=== PATIENT | male | born 1995 | race Caucasian/White ===

== ENCOUNTER → 2019-05-14 | Outpatient (CLI) | payer OTHER ==
--- NOTE | 2019-05-15 11:51 | RADIOLOGY REPORT (SQ) ---
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 TECHNIQUE: Noncontrast scanning through the paranasal sinuses using bone algorithm. Reconstructed MPR images reviewed. All images stored on PACS. All CT scanners at this facility use dose modulation, iterative reconstruction, and/or weight based d osing when appropriate to reduce radiation dose to as low as reasonably achievable (ALARA). [facility]: Dose Right [facility]: CareDose [facility]: Dose Right [facility]: Teradose 4D [facility]: [employer] RADIATION DOSE: 47.5mGy. LIMITATIONS: None. FINDINGS: Right sinuses and drainage pathways: Post-surgical changes: Patient is post resection of the right anterior ethmoid septa. There is still some bony with narrowing of the right frontal sinus outlet on sagittal image 11/272 and axial images 64 through 73. Surgical widening of the right maxillary sinus outlet on coronal image 118/390. Frontal sinus: Circumferential mucous membrane thickening in the right frontal sinus without air-flu id level. Frontoethmoidal Recess: Narrowing of the right frontal sinus outlet on sagittal image 11/272 and axi al images 64-73. Frontal sinus outlet is seen on coronal image 117/390 Anterior Ethmoid Sinuses: Post resection of the right anterior ethmoid septa Posterior Ethmoid Sinuses: Normal. Sphenoid Sinus: Normal. Sphenoethmoidal Recess: Narrowed on axial images 81 through 88 Maxillary Sinus: Circumferential mucous membrane thickening Ostiomeatal Complex: Surgical widening of the right maxillary sinus outlet on coronal image 118/390 Right Olfactory Fossa: Normal. Left Olfactory Fossa: Normal. Middle Turbinate Daina Bullosa: No Paradoxical Middle Turbinate: No Atelectatic Uncinated Process: Surgically absent Frontal Carrol Cell Type I: Bilateral Frontal Carrol Cell Type II: No Interfrontal Sinus Septal Cell: None. Suptra-Orbital Ethmoid: No Frontal Bullar Cell: No Suprabullar Bullar Cell: No Sphenoethmoidal ([place]) Cell: None. Pneumatization of the Anterior Clinoid Processes: None. Hypoplastic Maxillary Sinus: None. Osteoneogenesis: None. Bone Dehiscence: None. Left Sinuses and Drainage Pathways: Post-Surgical Changes: None. Frontal Sinus: Normal. Frontoethmoidal Recess: There is distortion of these frontal sinus drainage pathways related to left narayan nasal septal deviation along the anterior superior 3rd of the nasal septum. This is best shown on coronal images 91 through 120. Narrowing of the left frontal sinus drainage pathways from leftwar d upper nasal septal deviation and left agger Nasi and type 2 frontal cells. Anterior Ethmoid Sinuses: Mucous membrane thickening in the anterior left ethmoid air cells. Product Representative ior left ethmoid air cells are clear Posterior Ethmoid Sinuses: Normal. Sphenoid Sinus: Normal. Sphenoethmoidal Recess: Mucous membrane thickening in the left see no ethmoidal recess axial image 8 5 Maxillary Sinus: Mucus or serous retention cysts in the floor left maxillary sinus. Mucous membrane thickening occludes the left maxillary outlet on coronal images 91-102. Ostiomeatal Complex: Left ostiomeatal complex is narrowed by left upper anterior nasal septal deviat ion. These findings are best shown on coronal images 91-102. Nasal Cavity: Normal. Nasal Septum: Leftward nasal septal deviation along the anterior superior aspect of the nasal septum Anatomic Variants: Right Vidian Canal: Normal Left Vidian Canal: Normal Limited view of the middle ear cavities and mastoid air cells unremarkable. Brain parenchyma in the field of view unremarkable IMPRESSION: Postoperative changes right frontal and maxillary sinus outlets. Leftward nasal septal deviation along its anterior superior portion, narrowing the left frontal and l eft maxillary sinus outlets. TECHNICAL DOCUMENTATION: JOB ID: [id number] Quality ID # [id number]: Final reports with documentation of one or more dose reduction techniques (e.g., Au tomated exposure control, adjustment of the mA and/or kV according to patient size, use of iterative reconstruction technique) 2010 Dr. TATTOFF- All Rights Reserved Reading location - IP/workstation name: [email or web address]
== END ==
LOC: RAD 13:08
PROVIDERS: ATTEND Otolaryngology
DX: J34.2 Deviated nasal septum (principal)
CPT/HCPCS: 70486

== ENCOUNTER → 2019-06-24 | Day surgery (SDC) | payer OTHER ==
[~2019-06-24] MED LIST: BACITRACIN ZINC OINTMENT 15 GM ONE; BALANCED SALT IRRIG SOLN COMB2 15 ML BOTTLE ONE; BUPIVACAINE HCL 0.5%-EPI 1:200000 INJ/PF 30 ML VIAL ONE; BUPIVACAINE HCL 0.5%/EPI 1:200000 INJ 1.8 ML CARTRIDGE ONE; CEFAZOLIN 2 GM/D5W RTU 2 GM/50 ML RTUPB IV PRN; DEXAMETHASONE SOD PHOS INJ 10 MG/1 ML VIAL ONE; DEXMEDETOMIDINE INJ 80 MCG/20 ML VIAL IV ONE; DIPHENHYDRAMINE HCL 50 MG/ML VIAL ONE; FENTANYL CITRATE INJ/PF 100 MCG/2 ML AMPUL ONE; LACTATED RINGERS 1000 ML IV PRN; LIDOCAINE 0.5% INJ-PF (5 MG/ML) 50 ML SDV SUBCUT PRN; LIDOCAINE 2% INJ-PF (20 MG/ML) 10 ML AMPUL ONE; MIDAZOLAM 2 MG/2 ML INJ ONE; MINERAL OIL (STERILE) 10 ML VIAL ONE; ONDANSETRON HCL INJ/PF 4 MG/2 ML SDV ONE; OXYMETAZOLINE HCL 0.05% NASAL SPRAY 15 ML BOTTLE ONE; PROPOFOL INJ 200 MG/20 ML VIAL IV ONE; ROCURONIUM BROMIDE INJ 50 MG/5 ML VIAL IV ONE; SCOPOLAMINE HYDROBROMIDE 1.5 MG PATCH.TD72 TD PRN; SUCCINYLCHOLINE CHLORIDE INJ 200 MG/10 ML VIAL ONE; TOBRAMYCIN SULFATE/DEXAMETH OPH OINTMENT 3.5 GM ONE
--- NOTE | 2019-07-14 08:11 | Operative Report ---
[facility] Oper[facility] Report: Date of surgery: June 24, 2019 PREOPERATIVE DIAGNOSES: 1. Nasal Deformities, Acquired 2. Chronic nasal Dyspnea 3. Nasal septal deviation and deformities, Acquired 4. Maxillary crest spur/septal spur 5. History of previous right FESS/functional endoscopic sinus surgery with extensive right middle turbinate hypertrophy/right maxillary antrostomy cicatrix with extensive crusting 6. Bilateral inferior turbinate hypertrophy 7. History of recurrent nasal trauma with resulting nasal deformities and nasal dyspnea 8. Nasal valve collapse/deficiencies POSTOPERATIVE DIAGNOSES: 1. Nasal Deformities, Acquired 2. Chronic nasal Dyspnea 3. Nasal septal deviation and deformities, Acquired 4. Maxillary crest spur/septal spur 5. History of previous right FESS/functional endoscopic sinus surgery with extensive right middle turbinate hypertrophy/right maxillary antrostomy cicatrix with extensive crusting 6. Bilateral inferior turbinate hypertrophy 7. History of recurrent nasal trauma with resulting nasal deformities and chronic nasal dyspnea 8. Nasal valve collapse/deficiencies PROCEDURES: 1. Reconstructive external/open septorhinoplasty addressing the bony nasal pyramid, the upper, lower lateral cartilages with multiple irradiated costal cartilage rib grafts utilized and nasal tip complex support/stabilization. 2. External irradiated costal cartilage rib graft material (see graft information below). 3. Bilateral inferior turbinate reductions using submucus resection techniques. 4. Right middle turbinate/nasal passage/maxillary antrostomy debulking of tissues and scar cicatrix removal. 5. Bilateral transnasal rigid surgical endoscopy. SURGEON: Dr. Sherly Rhodes Anesthesia Staff: LANCE Rosado ANESTHESIA: General endotracheal tube anesthesia/GETA DRAINS: None GRAFT: [employer] irradiated costal cartilage rib graft, ID: [id number], code: [id number], expiration date 07-27-2024. SPONGE COUNT: Verified NEEDLE COUNT: Verified SPECIMEN/MATERIALS FORWARD TO THE LAB: None ESTIMATED BLOOD LOSS: 200 mL TOTAL IV FLUIDS: 1200 mL URINE OUTPUT: 500 ml COMPLICATIONS: None FINDINGS: 1. Caudal septal cartilage with severe deformities with numerous fractures with near complete/100% obstruction of the right nasal passage and extensive scar tissue present. 2. Maxillary crest spur/septal spur with dorsal hump and the appearance of a saddle deformity of the nasal dorsum. 3. Prior FESS site on the right with right middle turbinate hypertrophy and scar cicatrix formation of the right middle turbinate and maxillary antrostomy areas with extensi ve mucus and testing noted. 4. Bilateral inferior turbinate and right middle turbinate hypertrophy. 5. Nasal tip complex is bulbous, twisted, and with poor nasal tip support. 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 The patient was referred for and complained of a long-standing history of chronic nasal dyspnea, repeated nasal trauma over the years, and resulting nasal deformities. The patient also suffered complications from sinusitis as a teenager which resulted in the right sided FESS/functional endoscopic sinus surgery with hospitalization. The patient clinically and endoscopically was noted to have the above findings as well as right middle turbinate hypertrophy with extensive scar cicatrix o bstructing the maxillary antrostomy/right nasal passage area with extensive mucus and crusting which he says he has dealt with over the years since the sinus surgery which has been difficult as the right nasal passage is nearly completely/100% obstructed. After extensive discussion with the patient recommendation and plan was for reconstructive open/external septorhinoplasty with irradiated rib graft cartilage grafts, bilateral inferior turbinate reductions, bilateral rigid transnasal surgical endoscopy, and removal of the right nasal passage scar cicatrix tissue and right middle turbinate reduction all of which the patient voiced an understanding of and agreed with. The procedures, and all of the risks and complications were all discussed in detail with the patient. He voiced an understanding, agreed to proceed, and consent was obtained. DESCRIPTION OF OPERATIVE PROCEDURE: The patient was taken to the main operating room and placed on the operating room table in the supine position. Appropriate monitors were placed. Using mask and IV access general anesthesia was induced. The patient was then transorally intubated without difficulty. The table was next positioned for revision reconstructive nasal surgery. The patient underwent a nasal examination and local anesthetic with epinephrine was administered to establish a nasal block. The patient next had two Afrin soaked neuropatties placed into each nasal passage. The patient was then prepped and draped in the usual fashion for nasal surgery. The neuropatties were removed. The patient underwent a nasal examination with findings as noted above. At this point there was a full transfixion incision made with delicate and tedious elevation of mucosal flaps and a [id number] and subperiosteal fashion with multiple septal cartilage fracture fragments noted which were removed piece by piece until the remnant of the caudal septal cartilage was completely identified along with the bony nasal septum. The bony cartilaginous junction was divided with the most deviated portions of septal cartilage and bone removed. There was a greater than 1.5 x 1.5 cm cartilaginous L-strut that was preserved. The maxillary crest spur and septal spur were addressed with V-chisels and carefully removed. Attention was now turned to performing the bilateral inferior turbinate reductions. A turbinate bipolar wand was used to make 2 passes in each side followed by use of a turbinate microdebrider system at a setting of 1500 RPM to perform submucous resection on each side. This was followed by use of the [place] elevator to outfracture each inferior turbinate. At this point via bilateral transnasal rigid surgical endoscopy and use of through biting sinus surgical instruments and the microdebrider system the right middle turbinate reduction was performed and the scar cicatrix tissue was released and removed to allow for the right nasal passage obstructions to be removed and the right maxillary antrostomy to be free of obstructing tissue. The external rhinoplasty portion of the case was addressed in the following fashion. There was an inverted V incision performed followed by marginal incisions being performed on each side followed by elevation of the skin and soft tissue envelope and a sub-perichondrial and subperiosteal planes. Dorsal rasp work was performed. The area between the lower lateral cartilages were released and the upper lateral cartilages were from the nasal septum. At this point the irradiated costal cartilage rib graft which had been prepared was now utilized to fashion a large robust extended left e mail system administrator graft and [place] septal tissue was utilized to perform the down strut from the rib graft to the anterior nasal spine. Once complete the construct was stabilized at the anterior nasal spine with 5-0 clear nylon suture. The rib graft had been secured in place with 5-0 Prolene suture. The upper lateral cartilages were reattached in the midline with 6-0 Prolene suture. Stebbins septal cartilage was also utilized to place a robust columellar strut graft between the medial crura and medial crural footplates Which was secured in place with suture. The excess fibrofatty tissue from the deep surface of the skin soft tissue envelope was also debulked. The lower lateral cartilage dome areas were reestablished in the midline with 6-0 Prolene suture. The skin and soft tissue envelope was returned to its proper position and a chromic suture was utilized to secure the deep aspect of the inverted V incision followed by use of 6-0 Prolene suture to reapproximate the skin margins. The nose had been thoroughly irrigated and suctioned with reasonable hemostasis noted. There was [place] tissue utilized for dorsal onlay graft material. Stebbins cartilage remnants were placed back between the mucosal flaps and banked. At this point the nose was thoroughly suctioned. All remaining incisions were reapproximated with 5-0 chromic suture. One modified Merocel nasal pack with Afrin and bacitracin ointment was placed per nasal passage that were secured at the caudal aspect with 4-0 Prolene suture. The nose was then cleaned and dried followed by placement of Mastisol Steri-Strips and a Edward compression splint. Next, the patient was returned to the anesthesia staff and was allowed to emerge from general anesthesia. The patient was extubated in the main operating room and was then transported to the postanesthesia recovery unit in stable condition. There were no complications.
== END ==
LOC: SC 08:09
PROVIDERS: ATTEND Otolaryngology
DX: J34.2 Deviated nasal septum (principal); J34.3 Hypertrophy of nasal turbinates; J30.9 Allergic rhinitis, unspecified; M95.0 Acquired deformity of nose; R06.09 Other forms of dyspnea; J34.1 Cyst and mucocele of nose and nasal sinus; J35.3 Hypertrophy of tonsils with hypertrophy of adenoids; H74.03 Tympanosclerosis, bilateral; Z96.22 Myringotomy tube(s) status
CPT/HCPCS: 00160; 30140; 30420; 20910; J2250; J3490 ×9; J1200; J3010; J0330; J2405; J2704; J1100; J0690; 160

== ENCOUNTER → 2019-08-02 | Outpatient (CLI) | payer OTHER | LOC: OD 09:19 | PROVIDERS: ATTEND Otolaryngology | DX: J30.9 Allergic rhinitis, unspecified (principal) | CPT/HCPCS: 36415; 82785; 86003 ==